=== PATIENT | female | born 1975 | race Caucasian/White ===

== ENCOUNTER 2016-11-14 21:19 | Emergency (ER) | payer BC, MEDICAID ==
[~2016-11-14] VITALS: Ht 165.1 cm; Wt 54.4 kg
--- NOTE | 2016-11-15 00:28 | NUR ---
Patient discharged to home in stable conditon. Written and verbal after care instructions given. Patient verbalizes understanding of instructions.
== END 2016-11-15 00:29 | disposition home or self-care (01) ==
LOC: ER 21:20
DX: S39.012A Strain of muscle, fascia and tendon of lower back, initial encounter (principal); X50.9XXA Other and unspecified overexertion or strenuous movements or postures, initial encounter; Y93.89 Activity, other specified; Y92.9 Unspecified place or not applicable; Y99.9 Unspecified external cause status
CPT/HCPCS: A4663